=== PATIENT | female | born 1955 | race Caucasian/White ===

== ENCOUNTER → 2023-11-28 12:35 | Outpatient (REF) | payer OTHER, SELFPAY | LOC: HWRAD 12:35 | PROVIDERS: ATTENDING PHYSICIAN Internal Medicine | DX: Z12.31 Encounter for screening mammogram for malignant neoplasm of breast (principal); Z78.0 Asymptomatic menopausal state | CPT/HCPCS: 77063; 77067; 77080 ==

== ENCOUNTER → 2024-05-23 12:03 | Outpatient (REF) | payer MEDICARE, SELFPAY | LOC: MRI 3T 12:03 | PROVIDERS: ATTENDING PHYSICIAN Internal Medicine; FAMILY PHYSICIAN Internal Medicine | DX: K52.9 Noninfective gastroenteritis and colitis, unspecified (principal); R63.4 Abnormal weight loss | CPT/HCPCS: 72197; 74183; A9575 ==

== ENCOUNTER → 2024-08-10 12:36 | Outpatient (REF) | payer MEDICARE, SELFPAY | LOC: RAD 12:36 | PROVIDERS: ATTENDING PHYSICIAN Family Medicine; FAMILY PHYSICIAN Allergy & Immunology | DX: M54.9 Dorsalgia, unspecified (principal); R07.81 Pleurodynia | CPT/HCPCS: 71101 ==

== ENCOUNTER 2024-08-30 06:24 | Day surgery (SDC) | payer MEDICARE, SELFPAY | END 2024-08-30 15:21 | disposition home or self-care (01) | LOC: GI 06:24 | PROVIDERS: ATTENDING PHYSICIAN Internal Medicine; FAMILY PHYSICIAN Internal Medicine | DX: R19.7 Diarrhea, unspecified (principal); K44.9 Diaphragmatic hernia without obstruction or gangrene; R15.9 Full incontinence of feces; K63.89 Other specified diseases of intestine; D12.8 Benign neoplasm of rectum | CPT/HCPCS: 45338; 43239; 45331; 88305; 88342 ==

== ENCOUNTER → 2024-09-27 09:20 | Outpatient (REF) | payer MEDICARE, SELFPAY | LOC: RAD 09:20 | PROVIDERS: ATTENDING PHYSICIAN Internal Medicine; FAMILY PHYSICIAN Internal Medicine | DX: R15.9 Full incontinence of feces (principal) | CPT/HCPCS: 74270 ==

== ENCOUNTER 2024-10-09 15:56 | Outpatient (RCR) | payer MEDICARE, SELFPAY | END 2024-10-09 23:59 | disposition home or self-care (01) | LOC: RPT 15:56 | PROVIDERS: ATTENDING PHYSICIAN Internal Medicine; FAMILY PHYSICIAN Internal Medicine | DX: K52.9 Noninfective gastroenteritis and colitis, unspecified (principal); Z73.6 Limitation of activities due to disability; R19.7 Diarrhea, unspecified | CPT/HCPCS: 97110; 97112; 97161; 97530 ==

== ENCOUNTER → 2024-10-11 06:35 | Day surgery (SDC) | payer MEDICARE, SELFPAY | LOC: GI 06:35 | PROVIDERS: ATTENDING PHYSICIAN Internal Medicine | DX: Z12.11 Encounter for screening for malignant neoplasm of colon (principal); D12.5 Benign neoplasm of sigmoid colon; K57.30 Diverticulosis of large intestine without perforation or abscess without bleeding; K62.89 Other specified diseases of anus and rectum; Z86.0101 Personal history of adenomatous and serrated colon polyps | CPT/HCPCS: 45385; 45380; 88305 ==

== ENCOUNTER 2024-10-31 15:49 | Inpatient (IN) | payer MEDICARE, SELFPAY ==
[2024-10-31] VITALS (11 sets, daily range): BP systolic 129–229; BP diastolic 79–126; BMI 16.0; BMI 19.4
[2024-10-31 13:19] LABS: Glucose - Point of Care 108 mg/dl (70-99)
--- NOTE | 2024-10-31 13:33 | ED.CVA ---
History of Present Illness
General
Chief Complaint: CVA/TIA Symptoms
Source: patient and spouse
Exam Limitations: none
Time Seen by Provider: 10/31/24 13:18
Onset of Stroke Symptoms
Onset of symptoms known: Yes
Date of onset of symptoms: 10/31/24
Time of onset of symptoms: 12:00
History of Present Illness
History of Present Illness:
68yoF with a history of an enterocele/rectocele with upcoming hysterectomy and remote history of migraines presenting with her for evaluation of a speech disturbance. Patient was at a meeting this morning around 11:30 AM. She developed a
mild posterior headache during the meeting. She also had a transient episode of visual disturbance of the right eye. She states that looked like an impressionist painting in her peripheral vision. She returned home and was speaking to her
around noon today. He was speaking about friends of theirs and she could not figure out who he was talking about. Shortly afterwards, she states she could not get out her words and was having trouble speaking. Symptoms lasted about 25 minutes
before resolving. She currently reports a 3/10 posterior headache but is otherwise asymptomatic. She denies any dizziness, paresthesias, weakness, balance issues.
Phy Exam
General Physical Exam
General Presentation: well appearing and no apparent distress
General age: appears stated age
General Skin: warm and dry
General Habitus: normal
General Mental: alert
ENT Exam
ENT Exam: normocephalic
Eye Exam
Eye Exam: PERRL, EOMI, conjunctiva normal and visual costello normal
Cardiovascular Exam
Cardiovascular Exam: regular rate/rhythm and no murmur
Pulmonary Exam
Pulmonary Exam: lungs clear, no respiratory distress, no rales, no crackles and no rhonchi
Neurological Exam
Neurological Exam: alert, CN II-XII intact, no motor deficits, no sensory deficits, speech normal and other (CN 2-12 grossly intact with fluent speech. PERRL. EOMs intact. Visual costello normal. 5/5 strength and gross sensation intact in all
extremities. Negative drift x4. Normal finger to nose and heel to alfred bilaterally. )
Helio Coma Scale
Eye Opening: Spontaneous
Verbal Response: Oriented
Motor Response: Obeys Commands
GCS Total Score: 15
Skin Exam
Skin Exam: normal color and warm/dry
Psychiatric Exam
Psychiatric Exam: normal mood/affect
Scores
NIH Stroke Score
Level of Consciousness: 0 - Alert
LOC Questions: 0-Answers both correctly
LOC Commands: 0-Performs both correctly
Best Horizontal Gaze: 0-Normal
Visual Costello: 0=Normal, no visual loss
Facial Palsy: 0=Normal, symmetrical
Motor - Right Arm: 0=No drift 10 seconds
Motor - Left Arm: 0=No drift 10 seconds
Motor - Right Le-No drift 5 seconds
Motor - Left Le-No drift 5 seconds
Limb Ataxia: 0-Absent
Sensation: 0-Normal
Best Language: 0-No aphasia
Dysarthria: 0-Normal
Extinction and Inattention: 0-No abnormality
Total Score:: 0
Course
Orders/Labs/Results
Orders:
Orders
10/31/24 13:31
Electrocardiogram (*1) Urgent
Reason for Study: TIA/Stroke
EKG- Treatment ONCE
10/31/24 13:32
CT Head W/o Iv Contrast Urgent
Comment:
Reason For Exam: transient speech disturbance
Cardiac Monitoring- Treatment ONCE
10/31/24 13:34
Complete Blood Count/With Diff Urgent
Comprehensive Metabolic Panel Urgent
Troponin I Urgent
10/31/24 14:53
Acetaminophen [Tylenol] 1,000 mg PO NOW STA
10/31/24 15:08
HydrALAZINE [Apresoline] 10 mg IV NOW STA
10/31/24 15:17
Admit/Transfer Patient As Directed
Co-Sign Provider:
Level of Care: Inpatient admission
Assign to:: Telemetry
Physician / Group: Hospitalist
Diagnosis: Speech problems
Reason for Telemetry: CVA/TIA
Date to Stop Telemetry: 11/03/24
Time to Stop Telemetry: 11:00
Reason for Hospitalization: .
Expected length of stay greater than two midnights?: Yes
ELOS- Estimated Length of Stay in days: 3
I certify the patient meets the requirements for IP care: Yes
PRN Pain Medication Management As Directed
May give lesser potent ordered pain med per pt: Yes
preference::
Protocol:: Medication orders for pain may be administered in a
manner that supports deferring to patient preference
when the pt is:
- Requesting an ordered lesser potent pain medication.
Least to most potent pain medications are defined
as: acetaminophen < NSAID < tramadol < opioids
(morphine, oxycodone, hydromorphone).
- Requesting a lesser dose of the same medication IF
ORDERED.
- Requesting a less intrusive route of administration
if both routes are prescribed by the provider (PO <
IV).
10/31/24 15:18
Code Status As Directed
Resuscitation Status: Full Code
10/31/24 15:21
EKG [Electrocardiogram (*1)] Stat
Reason for Study: TIA/Stroke
CR Chest - 2 Views Stat
Comment:
Reason For Exam: Stroke
11/03/24 11:00
DC Protocol for Telemetry ONCE
Abnormal Lab Results
10/31/24 10/31/24
13:18 13:34
MCH 31.2 H pg
(27.0-31.0)
MCHC 32.8 L g/dL
(33.0-37.0)
MPV 11.2 H fL
(7.4-10.4)
Absolute Lymphs (auto) 1.1 L 10^3/uL
(1.2-3.4)
Lymphocytes % 19.2 L %
(20.5-51.1)
Carbon Dioxide 32 H mmol/L
(22-30)
Glucose 137 H mg/dl
(70-99)
POC Glucose 108 H mg/dl
(70-99)
10/31/24 13:34
10/31/24 13:34
Vital Signs
Initial and Last Documented VS:
Initial Vital Signs
Pulse Resp BP Pulse Ox
80 18 206/110 100
10/31/24 13:11 10/31/24 13:11 10/31/24 13:11 10/31/24 13:11
Last Documented Vital Signs
Pulse Resp BP Pulse Ox
77 13 191/96 99
10/31/24 14:05 10/31/24 13:25 10/31/24 14:05 10/31/24 14:05
MDM/Problems Addressed
Differential Diagnosis Includes:
68yoF presenting after an episode of speech disturbance. Could not understand what was saying and also could not get out her words. Lasted about 25 minutes before resolving. BP 206/110 on arrival. No prior history of hypertension. Neuro exam
is non-focal and NIHSS is 0. Differential diagnosis includes but is not limited to: TIA, intracranial hemorrhage, complex migraine, hypertensive urgency
Initial ED plan: Check cardiac labs, EKG, and CT head.
*EKG
Interpreted by ED Provider?: Yes
EKG Intrepretation Date: 10/31/24
Heart Rate: 74
Rate: normal
Rhythm: sinus
[place]: normal axis
Interval: normal interval
QRS Pattern: normal QRS
Ischemia: no ischemia
*Critical Care Note
Total Time (30-74mins, 75-104mins- exclusive of procedures): Not Applicable
Update Note
Update Note:
CT head is negative for acute findings. Labs overall unremarkable. Patient complaining of worsening headache on reassessment. She is persistently hypertensive with systolic blood pressures in the 190-200 range. She had an elevated blood pressure
at a PCP visit recently but has no prior diagnosis of hypertension. Case discussed with neurology who recommends admission. IV hydralazine ordered and patient admitted for further evaluation and management.
ED Attending Note
-
Portions of this chart may have been created with voice recognition software.� Occasional wrong word or��sound alike� substitutions may have occurred due to the inherent limitations of voice recognition software.
Discharge Plan
Departure
Patient Disposition: Admit
Date of Disposition: 10/31/24
Time of Disposition: 15:09
Presentation/result/management discussed w/ accepting MD/DO: Hospitalist
Discharge Problem:
Transient speech disturbance, Hypertensive urgency
Prescriptions:
No Action
loperamide [Imodium] 2 mg Capsule
2 mg PO DAILYPRN PRN (Reason: DIARRHEA)
acetaminophen 500 mg Tablet
1,000 mg PO Q6HPRN PRN (Reason: MILD PAIN)
cyanocobalamin (vitamin B-12) 1,000 mcg/mL Solution
1,000 mcg IM QMONTH
folic acid 1 mg Tablet
1 mg PO DAILY
cholecalciferol (vitamin D3) [Vitamin D3] 25 mcg (1,000 unit) Tablet
25 mcg PO DAILY
Ostinol
150 mg PO DAILY
Referrals:
Kelley Conte NP [Family Provider] -
Interventions
Interventions:
*Risk Screen - Suicide Last Done: 10/31/24 13:11
*General Assessment Last Done: 10/31/24 13:31
ED- Fall Risk Assessment Last Done: 10/31/24 13:38
ED- Pulmonary Assessment Last Done: 10/31/24 13:38
ED- Neurological Assessment Last Done: 10/31/24 13:38
ED- Cardiac Assessment Last Done: 10/31/24 13:38
Discharge Date and Time
Print Language: BELARUSIAN
[2024-10-31 13:57] LABS: % Basophils 0.5 % (0-2); % Immature Granulocytes 0.2 % (0-0.5); % Lymphocytes 19.2 % (20.5-51.1); % Monocytes 7.9 % (1.7-9.3); % Neutrophils 71.2 % (42.2-75.2); Absolute Eosinophils 0.1 10^3/uL (0-0.7); Absolute Lymphocytes 1.1 10^3/uL (1.2-3.4); Absolute Monocytes 0.5 10^3/uL (0.1-0.6); Absolute Neutrophils 4.2 10^3/uL (1.4-6.5); Hematocrit 43.9 % (37.0-47.0); Hemoglobin 14.4 g/dL (12.0-16.0); Mean Corp Hgb Conc. 32.8 g/dL (33.0-37.0); Mean Corpuscular Hgb 31.2 pg (27.0-31.0); Mean Platelet Volume 11.2 fL (7.4-10.4); Nucleated Red Blood Cells % 0 %; Platelet Count 228 10^3/uL (130-400); Red Blood Cell Count 4.62 10^6/uL (4.20-5.40); White Blood Cell Count 5.9 10^3/uL (4.8-10.8)
[2024-10-31 14:09] LABS: ALT (SGPT) 21 U/L (0-35); AST (SGOT) 30 U/L (14-36); Albumin 4.3 g/dl (3.5-5.0); Alkaline Phosphatase 97 U/L (38-126); Blood Urea Nitrogen 16 mg/dl (7-17); Calcium 9.2 mg/dl (8.4-10.2); Carbon Dioxide 32 mmol/L (22-30); Chloride 99 mmol/L (98-107); Estimated Creatinine Clearance 45 ml/min; Glucose 137 mg/dl (70-99); Potassium 4.2 mmol/L (3.5-5.1); Sodium 136 mmol/L (135-145); Total Bilirubin 0.5 mg/dl (0.2-1.3); Total Protein 6.7 g/dl (6.3-8.2); eGFR > 60.00
[2024-10-31 14:19] LABS: Troponin I < 0.012 ng/ml
--- NOTE | 2024-10-31 15:17 | HPS.HSE ---
Family Physician
-
Family Physician: Kelley Conte
Chief Complaint
-
Speech problem
History of Present Illness
68 years old female who was at normal state today when she started to have headache during virtual meeting with family financial management consultant today. She did have vision of problems. She has history of migraine but has not had severe migraine. She
takes Tylenol only for headaches. Later on she felt that she knew what she wanted to say but could not expressive and her family felt she was having speech problems that lasted 25 minutes and resolved. She is at her baseline now. In the ER, she
was noted to have elevated blood pressure. She has no history of hypertension but recently was told her blood pressure was on the high side. She does not take specific medications other than supplements
Medical History
Past Medical History
Past Medical History: Reports Other (History of chronic diarrhea/IBS)
Past Surgical History: Reports Other (No recent major surgery)
Social History
Tobacco: Non-smoker
Alcohol: Occasional
Drug: None
Personal:
Living: With Family
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
Family History
Family History: Other (Her father had Parkinson. Her mother had hypertension)
Allergies / Home Medications
Allergies reflects when Allergies were last updated in [facility].
Home Medications with original date entered in [facility]
Allergy/Medication List:
Allergies
Allergy/AdvReac Type Severity Reaction Status Date / Time
metronidazole [From Flagyl] Allergy facial/neck Verified 10/31/24 13:32
numbness
Home Medications
Ostinol 150 mg PO DAILY 10/31/24
acetaminophen 500 mg tablet 1,000 mg PO Q6HPRN PRN MILD PAIN 10/31/24
cholecalciferol (vitamin D3) 25 mcg (1,000 unit) tablet (Vitamin D3) 25 mcg PO DAILY 10/31/24
cyanocobalamin (vitamin B-12) 1,000 mcg/mL injection solution 1,000 mcg IM QMONTH 10/31/24
folic acid 1 mg tablet 1 mg PO DAILY 10/31/24
loperamide 2 mg capsule 2 mg PO DAILYPRN PRN DIARRHEA 10/31/24
Review of Systems
-
History Source: Patient
A 12 point ROS was completed and negative except as noted: Yes
Constitutional: Denies Fever, Fatigue, Sleep Disturbance or Chills
EENT: Denies Sore Throat
Respiratory: Denies Cough
Cardiac: Denies Chest Pain
Abdomen/GI: Reports Diarrhea (Chronic mostly morning time); Denies Abdominal Pain
: Denies Dysuria or Frequency
Musculoskeletal: Denies Joint Swelling or Muscle Stiffness
Neurological: Reports Headache; Denies Numbness
Endocrine: Denies Temp Intolerance
Hematologic/Lymphatic: Denies Bruising
Psych: Denies Panic Disorder
Physical Exam
Vital Signs
Vital Signs
Pulse Resp BP Pulse Ox
77 13 191/96 99
10/31/24 14:05 10/31/24 13:25 10/31/24 14:05 10/31/24 14:05
Physical Exam
General: Well Nourished, No Apparent Distress, Comfortable and Conversant
HEENT: Anicteric, Moist mucous membranes, Atraumatic and No Ptosis
Respiratory: Clear
Cardiac: S1/S2 and Regular Rhythm; No Murmur
GI: Soft and Non Tender
Rectal: No Maroon Stools
Genito-urinary: No Cheung
Musculoskeletal: No Clubbing, No Cyanosis and No Edema
Skin: Warm and Dry
Neuro: AO x 3, Nonfocal/grossly intact and Cranial Nerves Intact; No Slurred Speech, Facial Droop or Tremors
Psych: Calm and Intact Judgment/Insight
Laboratory Results
-
10/31/24 13:34
10/31/24 13:34
Laboratory Results
Total Bilirubin 0.5 mg/dl (0.2-1.3) 10/31/24 13:34
AST 30 U/L (14-36) 10/31/24 13:34
ALT 21 U/L (0-35) 10/31/24 13:34
Alkaline Phosphatase 97 U/L (38-126) 10/31/24 13:34
Troponin I < 0.012 ng/ml 10/31/24 13:34
Impression/Plan
-
68 years old female presented with transient visual and speech problems that resolved. She was noted to have elevated blood pressure in the ER.
#Transient expressive aphasia accompanied by headache and visual disturbance.
History of migraine
Differential diagnosis include hypertensive encephalopathy, stroke/ TIA, complex migraine
Currently patient has normal neurologic exam
Mild headache
Admit the patient to telemetry
Stroke protocol with neurochecks
Permissive hypertension
CAT scan of the head no acute finding
Will order CTA of head and neck and MRI of the brain
Echocardiogram
Lipid panel and hemoglobin A1c, TSH
Negative troponin.
Appreciate neurology input
# History of migraine
Will use Tylenol as needed
#Hypertensive urgency
No personal history of hypertension
Her mother had hypertension
Possible untreated primary hypertension. Normal renal function. No heart murmur or carotid bruit
Will check EKG
Order chest x-ray
Negative troponin
Order echocardiogram
Permissive hypertension for 24 hours because possibility of TIA/stroke
As needed IV hydralazine with holding parameters strict to keep systolic blood pressure more than 165 if possible
Subsequent monitoring and adjustment of blood pressure medication
# History of digestive problems, chronic diarrhea mostly morning time need to use Imodium.
Patient is following with GI and recent colonoscopy ruled out microscopic colitis
# History of rectal prolapse, plan for surgical repair in near future
# DVT prophylaxis
Total time spent to see the patient on the floor, examine the patient, review data and lab results, discuss treatment plan with patient, ER doctor and nursing staff around 75 minutes
[2024-10-31] MEDS: APRESOLINE 10 MG IV (15:52)
[2024-10-31] MEDS: TYLENOL 1000 MG PO ×2 (15:52→21:32)
--- NOTE | 2024-10-31 16:24 | CON.NEURO ---
Consultation
Order
Date of Consultation: 10/31/24
Requesting Provider: Kameron Pike MD
Reason for Consult: Speech changes
Neurology Consultation Note.
HPI: This is a 68-year-old left-handed woman who presented to [facility] on 10/31/2024 with change in speech, headache and elevated blood pressure. The patient endorses gradual in onset left occipital nonpositional headache that
developed this morning following a meeting around 11:30 AM. Prior to the headache onset, she experienced difficulty putting sentences together. Associated symptoms include photophobia and mild nausea. The patient denies visual, motor or sensory
symptoms, vertigo or neck pain. The episode of difficulty with word formation - words were 'jumbled' lasted approximately 20-30 minutes
Based on EMR the patient had a transient episode of visual disturbance of the right eye.
The patient has a history of elevated blood pressure, recently noted by her primary care physician during a check-up for dietary issues and weight loss.
ER VS: 206/102-229/125, 80, afebrile
EKG�Pending
Labs: Glucose�134, normal sodium, WBCs, creatinine, LFTs.
CT head wo contrast�no acute abnormality
PMH: Vitamin B12/D deficiency, tubular Adenoma, IBS, BMI 16, enterocele/rectocele, h/o left fifth metatarsal shaft fracture
PSH:
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
FH: Father had Parkinson disease, mother from stroke in her 80s
All: Flagyl
ROS: Positive for unintentional weight loss
HENT: Negative for ear pain, hearing loss, tinnitus and trouble swallowing.
Eyes: Negative. Negative for photophobia, pain and visual disturbance.
Respiratory: Negative for cough, choking and shortness of breath.
Cardiovascular: Negative for chest pain, palpitations and leg swelling.
Gastrointestinal: Positive for 'GI problems '
Endocrine: Negative. Negative for cold intolerance.
Genitourinary: Negative for dysuria, flank pain and urgency.
Musculoskeletal: Negative for back pain, gait problem, neck pain and neck stiffness.
Skin: Negative for rash.
Allergic/Immunologic: Negative. Negative for immunocompromised state.
Neurological: Positive for transient speech dysfunction, headache
Psychiatric/Behavioral: Negative for behavioral problems, confusion and hallucinations.
General: Well developed. In no acute distress.
Cardio: Regular rate and rhythm without murmur. Extremities are without cyanosis or edema.
Neuro:
Mental Status: Alert, oriented to person, place, and date. Normal attention and recall. Good fund of knowledge. Follows complex requests across the midline. Comprehension, naming, and repetition intact.
Cranial Nerves: Pupils are equally round and reactive to light. EOMs full. Visual costello full to confrontation. No ptosis. No nystagmus. V1-V3 intact to light touch and pinprick bilaterally, symmetric. Face symmetric. Normal hearing AU. The
palate elevated well. SCMs and traps 5/5. Tongue midline. No dysarthria.
Motor: Normal bulk and tone. No pronator or arm drift. Strength 5/5 throughout. No clonus.
Reflexes: 2+ throughout the upper extremities and knees. Plantar responses flexor bilaterally.
Sensory: Normal vibration at the toes
Coordination: No dysmetria or tremor.
Gait: deferred
Assessment and Plan:
I. Hypertensive emergency
II. New onset of headache �rule out PRESS
III. History of migraine headaches
-Continue Telemetry monitoring
-Aspiration precautions
-Cautious lowering of BP by approximately 15 % during the first 24 hours is SBP >220 mmHg or diastolic blood pressure >120 mmHg
-Restart antihypertensive medications during if BP>140/90 mmHg who are neurologically stable in 24 to 48 hours after stroke onset
-Start ASA 81 mg QD indefinitely
-CTA of the head and neck
-Brain MRI without radha
-DVT prophylaxis.
I personally reviewed all radiology and labs along with past medical records pertinent to current medical problems. Total time spent in patient care is 60 minutes.
Thank you for allowing us to participate in the care of this patient. We will continue to follow. Please do not hesitate to contact us with any questions or concerns.
Subjective/Objective
Subjective Data
Date of Service: October 31, 2024
Objective Data
Vital Signs
Pulse Resp BP Pulse Ox
75 18 203/108 98
10/31/24 16:00 10/31/24 16:00 10/31/24 16:00 10/31/24 15:57
Lab Results
10/31/24 13:34
10/31/24 13:34
Sodium 136 mmol/L (135-145) 10/31/24 13:34
Potassium 4.2 mmol/L (3.5-5.1) 10/31/24 13:34
BUN 16 mg/dl (7-17) 10/31/24 13:34
Glucose 137 mg/dl (70-99) H 10/31/24 13:34
Calcium 9.2 mg/dl (8.4-10.2) 10/31/24 13:34
Patient Allergies
metronidazole [From Flagyl] Allergy (Verified 10/31/24 13:32)
facial/neck numbness
Medications
-
Home Medications
�Medication �Instructions �Recorded
Ostinol 150 mg PO DAILY 10/31/24
acetaminophen 500 mg tablet 1,000 mg PO Q6HPRN PRN MILD PAIN 10/31/24
cholecalciferol (vitamin D3) 25 25 mcg PO DAILY 10/31/24
mcg (1,000 unit) tablet (Vitamin
D3)
cyanocobalamin (vitamin B-12) 1,000 mcg IM QMONTH 10/31/24
1,000 mcg/mL injection solution
folic acid 1 mg tablet 1 mg PO DAILY 10/31/24
loperamide 2 mg capsule 2 mg PO DAILYPRN PRN DIARRHEA 10/31/24
Vital Signs and Labs
-
Vital Signs and Labs:
Vital Signs
Pulse Resp BP Pulse Ox
75 18 203/108 98
10/31/24 16:00 10/31/24 16:00 10/31/24 16:00 10/31/24 15:57
Lab Results
10/31/24 13:34
10/31/24 13:34
Sodium 136 mmol/L (135-145) 10/31/24 13:34
Potassium 4.2 mmol/L (3.5-5.1) 10/31/24 13:34
BUN 16 mg/dl (7-17) 10/31/24 13:34
Glucose 137 mg/dl (70-99) H 10/31/24 13:34
Calcium 9.2 mg/dl (8.4-10.2) 10/31/24 13:34
Home Medications
-
Home Medications
Ostinol 150 mg PO DAILY 10/31/24
acetaminophen 500 mg tablet 1,000 mg PO Q6HPRN PRN MILD PAIN 10/31/24
cholecalciferol (vitamin D3) 25 mcg (1,000 unit) tablet (Vitamin D3) 25 mcg PO DAILY 10/31/24
cyanocobalamin (vitamin B-12) 1,000 mcg/mL injection solution 1,000 mcg IM QMONTH 10/31/24
folic acid 1 mg tablet 1 mg PO DAILY 10/31/24
loperamide 2 mg capsule 2 mg PO DAILYPRN PRN DIARRHEA 10/31/24
--- NOTE | 2024-10-31 18:05 | PTCARENOTE ---
Received patient from ED via stretcher. AAOx3, ambulated to bed. Assessed and oriented to room. at bedside. NIH-0. Call browne in close reach.
[2024-10-31 18:50] LABS: Magnesium 2.2 mg/dl (1.6-2.3)
[2024-10-31] MEDS: HEPARIN 5000 UNITS SC (19:31)
[2024-10-31] MEDS: ZOFRAN 4 MG IV (19:31)
[2024-11-01] VITALS (7 sets, daily range): BP systolic 139–172; BP diastolic 68–99; PULSE 75–78; O2SAT 97
[2024-11-01] MEDS: TYLENOL 1000 MG PO (05:18)
[2024-11-01 06:21] LABS: Hematocrit 40.1 % (37.0-47.0); Hemoglobin 13.6 g/dL (12.0-16.0); Mean Corp Hgb Conc. 33.9 g/dL (33.0-37.0); Mean Corpuscular Hgb 31.2 pg (27.0-31.0); Mean Platelet Volume 11.5 fL (7.4-10.4); Platelet Count 208 10^3/uL (130-400); Red Blood Cell Count 4.36 10^6/uL (4.20-5.40); Red Cell Dist. Width 14.1 % (11.5-14.5); White Blood Cell Count 5.9 10^3/uL (4.8-10.8)
[2024-11-01 06:42] LABS: Blood Urea Nitrogen 16 mg/dl (7-17); Calcium 9.2 mg/dl (8.4-10.2); Carbon Dioxide 28 mmol/L (22-30); Chloride 103 mmol/L (98-107); Estimated Creatinine Clearance 49 ml/min; Glucose 96 mg/dl (70-99); HDL Cholesterol 78 mg/dl; LDL Cholesterol, Calculated 81 mg/dl; Potassium 4.4 mmol/L (3.5-5.1); Sodium 136 mmol/L (135-145); Total Cholesterol 181 mg/dl (50-199); Triglyceride 114 mg/dl (10-149); Very Low Density Lipoprotein 22 mg/dl (0-30); eGFR > 60.00
[2024-11-01 07:13] LABS: TSH 1.06 uIU/ml (0.47-4.68)
[2024-11-01] MEDS: NORVASC 5 MG PO ×2 (08:22→15:23)
[2024-11-01] MEDS: FOLVITE 1 MG PO (08:22)
[2024-11-01] MEDS: HEPARIN SC (08:22)
--- NOTE | 2024-11-01 09:43 | PTOTSP ---
ST Consult
Chart reviewed. Pt admitted for speech disturbance, headache, transient episode of visual disturbance, confusion, and expressive language difficulties that lasted <30 minutes. Pt dx with transient expressive aphasia with headache and visual
disturbance 2/2 hypertensive encephalopathy vs TIA/CVA vs complex migraine along with hypertensive urgency. Pt had an MRI of the Brain which revealed no acute infarction. Pt passed swallow screening and per RN has been tolerating PO medications and
PO intake without difficulties. Pt also has not had any further communication issues. Given this information, skilled [employer] evaluation is not indicated at this time. [employer] to sign off. Please re-consult if needed. Thank you.
[2024-11-01 10:14] LABS: C-Reactive Protein < 5.00 mg/L (0.0-10.00)
--- NOTE | 2024-11-01 10:26 | W.PN.HOSP.TC ---
Today's Communication/Plan
-
dc
Assessment / Plan
Assessment / Plan
Physical Exam
General: Well Nourished, No Apparent Distress, Comfortable and Conversant
HEENT: Anicteric, Moist mucous membranes, Atraumatic and No Ptosis
Respiratory: Clear
Cardiac: S1/S2 and Regular Rhythm; No Murmur
GI: Soft and Non Tender
Rectal: No Maroon Stools
Genito-urinary: No Cheung
Musculoskeletal: No Clubbing, No Cyanosis and No Edema
Skin: Warm and Dry
Neuro: AO x 3, Nonfocal/grossly intact and Cranial Nerves Intact; No Slurred Speech, Facial Droop or Tremors
Psych: Calm and Intact Judgment/Insight
68 years old female presented with transient visual and speech problems that resolved. She was noted to have elevated blood pressure in the ER.
#Transient expressive aphasia accompanied by headache and visual disturbance.
History of migraine
Differential diagnosis include hypertensive encephalopathy, stroke/ TIA, complex migraine
No recurrent speech problem, speech is fluent
Normal neurologic exam
Stroke protocol with neurochecks
s/p Permissive hypertension
CAT scan of the head no acute finding
CTA of head and neck no acute stenosis or obstruction
MRI of the brain and MRI with contrast, no acute findings.
Echocardiogram normal LVEF
Normal ESR, CRP and TSH
Negative troponin.
Discussed with neurology, all test are normal, unlikely stroke, prophylactically as could not rule out TIA, recommended to continue dual antiplatelet therapy for 3 weeks then to continue with aspirin., Neurology okay to discharge home.
# History of migraine
No more headache, no visual disturbances
Tylenol as needed
#Hypertensive urgency, result
No personal history of hypertension
Her mother had hypertension
Possible untreated primary hypertension. Normal renal function. No heart murmur or carotid bruit
EKG showed normal sinus rhythm
Checks x-ray no acute cardiopulmonary disease
Negative troponin
Echocardiogram showed normal LVEF 55 to 60%, mild mitral regurgitation, trace aortic regurgitation.
Discussed with the patient, started on amlodipine. She was advised to record her blood pressure twice a day. Patient has appointment with her PCP in 3 days.
# History of digestive problems, chronic diarrhea mostly morning time need to use Imodium.
Patient is following with GI and recent colonoscopy ruled out microscopic colitis
# History of rectal prolapse, plan for surgical repair in near future
I updated her surgeon Dr. German Dixon .
# DVT prophylaxis
Total discharge time spent to see the patient on the floor, examine the patient, review data and lab results, discuss discharge plan with patient, neurologist r and nursing staff around 65 minutes
Anticipated Discharge: Today
Subjective/Interval History
-
Date of Service: November 01, 2024
No sob
No chest pain
No speech problems
Wants to go home
Objective Data
-
Labs:
Laboratory Results
11/01/24
05:35
WBC 5.9
Hgb 13.6
Hct 40.1
Plt Count 208
Sodium 136
Potassium 4.4
Chloride 103
Carbon Dioxide 28
BUN 16
Creatinine 0.8
Glucose 96
Calcium 9.2
Vital Signs:
Vital Signs
Temp Pulse Resp BP Pulse Ox
98.5 F 74 20 154/93 97
11/01/24 07:37 11/01/24 07:37 11/01/24 07:37 11/01/24 07:37 11/01/24 07:37
I&O
10/31/24 11/01/24 11/02/24
06:59 06:59 06:59
Intake Total 480 / 480
Balance 480 / 480
[2024-11-01 12:00] LABS: Erythrocyte Sed Rate 1 mm/hour (0-20)
--- NOTE | 2024-11-01 13:18 | W.PN.NEURO.1 ---
Today's Communication / Plan
-
.
Subjective/Objective
Subjective Data
Date of Service: November 01, 2024
Neurology follow-up note
Ms. Tyson reports no complaint. She is eager to go home. Blood pressure has improved however continues to be elevated no reports of recurrent speech deficits.
The patient denies having headache, visual, motor or sensory changes.
MRI brain w/wo radha(11/01/2024) moderate T2/FLAIR hyperintense foci within the periventricular and deep subcortical white matter, greater than expected for age. Differential includes advanced chronic small vessel changes, demyelinating lesions, Lyme
disease, chronic migraines or vasculitis.
LDL�81, normal ESR, CRP, TSH
CTA head/neck-no hemodynamically significant stenosis.
TTE-Interatrial septum is intact with no evidence of shunting by color flow Doppler. No intracardiac mass or thrombus formation seen.
PMH: Vitamin B12/D deficiency, tubular Adenoma, IBS, BMI 16, enterocele/rectocele, h/o left fifth metatarsal shaft fracture
PSH:
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
FH: Father had Parkinson disease, mother from stroke in her 80s
All: Flagyl
ROS: Positive for unintentional weight loss
HENT: Negative for ear pain, hearing loss, tinnitus and trouble swallowing.
Eyes: Negative. Negative for photophobia, pain and visual disturbance.
Respiratory: Negative for cough, choking and shortness of breath.
Cardiovascular: Negative for chest pain, palpitations and leg swelling.
Gastrointestinal: Positive for 'GI problems '
Endocrine: Negative. Negative for cold intolerance.
Genitourinary: Negative for dysuria, flank pain and urgency.
Musculoskeletal: Negative for back pain, gait problem, neck pain and neck stiffness.
Skin: Negative for rash.
Allergic/Immunologic: Negative. Negative for immunocompromised state.
Neurological: Positive for transient speech dysfunction, headache
Psychiatric/Behavioral: Negative for behavioral problems, confusion and hallucinations.
General: Well developed. In no acute distress.
Cardio: Regular rate and rhythm without murmur. Extremities are without cyanosis or edema.
Neuro:
Mental Status: Alert, oriented to person, place, and date. Normal attention and recall. Good fund of knowledge. Follows complex requests across the midline. Comprehension, naming, and repetition intact.
Cranial Nerves: Pupils are equally round and reactive to light. EOMs full. Visual costello full to confrontation. No ptosis. No nystagmus. V1-V3 intact to light touch and pinprick bilaterally, symmetric. Face symmetric. Normal hearing AU. The
palate elevated well. SCMs and traps 5/5. Tongue midline. No dysarthria.
Motor: Normal bulk and tone. No pronator or arm drift. Strength 5/5 throughout. No clonus.
Reflexes: 2+ throughout the upper extremities and knees. Plantar responses flexor bilaterally.
Sensory: Normal vibration at the toes
Coordination: No dysmetria or tremor.
Gait: deferred
Assessment and Plan:
I. TIA.
II. Subcortical white matter disease. Differential diagnosis includes vascular versus inflammatory less likely infectious or demyelinating.
III. History of migraine headaches
-Blood pressure goal�normotension
-DAPT for 3 weeks
-Brain MRI with gadolinium
-Follow-up MS mimickers
-Holter monitor
-Outpatient neurology follow-up
-DVT prophylaxis.
I personally reviewed all radiology and labs along with past medical records pertinent to current medical problems. Total time spent in patient care is 35 minutes.
Thank you for allowing us to participate in the care of this patient. We will continue to follow. Please do not hesitate to contact us with any questions or concerns.
Objective Data
Vital Signs
Temp Pulse Resp BP Pulse Ox
36.9 C 75 20 170/94 97
11/01/24 11:50 11/01/24 11:50 11/01/24 11:50 11/01/24 11:50 11/01/24 11:50
Lab Results
11/01/24 05:35
11/01/24 05:35
Sodium 136 mmol/L (135-145) 11/01/24 05:35
Potassium 4.4 mmol/L (3.5-5.1) 11/01/24 05:35
BUN 16 mg/dl (7-17) 11/01/24 05:35
Glucose 96 mg/dl (70-99) 11/01/24 05:35
Calcium 9.2 mg/dl (8.4-10.2) 11/01/24 05:35
LDL Cholesterol, Calc 81 mg/dl 11/01/24 05:35
Patient Allergies
metronidazole [From Flagyl] Allergy (Verified 10/31/24 13:32)
facial/neck numbness
Vital Signs and Labs
-
Vital Signs and Labs:
Vital Signs
Temp Pulse Resp BP Pulse Ox
36.9 C 75 20 170/94 97
11/01/24 11:50 11/01/24 11:50 11/01/24 11:50 11/01/24 11:50 11/01/24 11:50
Lab Results
11/01/24 05:35
11/01/24 05:35
Sodium 136 mmol/L (135-145) 11/01/24 05:35
Potassium 4.4 mmol/L (3.5-5.1) 11/01/24 05:35
BUN 16 mg/dl (7-17) 11/01/24 05:35
Glucose 96 mg/dl (70-99) 11/01/24 05:35
Calcium 9.2 mg/dl (8.4-10.2) 11/01/24 05:35
LDL Cholesterol, Calc 81 mg/dl 11/01/24 05:35
Medications
-
Medications:
Generic Name Dose Route Start Last Admin
Trade Name Freq PRN Reason Stop Dose Admin
Acetaminophen 1,000 mg 10/31/24 22:00 11/01/24 05:18
Acetaminophen 500 Mg Tablet PO 11/28/24 21:59 1,000 mg
Q6HPRN PRN Administration
MILD PAIN
Amlodipine Besylate 5 mg 11/01/24 08:00 11/01/24 08:22
Amlodipine 5 Mg Tablet PO 11/29/24 07:59 5 mg
DAILY JENNIFER Administration
Enalaprilat 1.25 mg 10/31/24 17:38
Enalaprilat 1.25 Mg/Ml Vial IV 11/28/24 17:37
Q6HPRN PRN
SBP more than 200
Folic Acid 1 mg 11/01/24 08:00 11/01/24 08:22
Folic Acid 1 Mg Tablet PO 11/29/24 07:59 1 mg
DAILY JENNIFER Administration
Heparin Sodium 5,000 units 10/31/24 20:00 11/01/24 08:22
Heparin 5,000 Units/Ml 1 Ml Vial SC 11/28/24 19:59 Not Given
Q12 JENNIFER
Hydralazine HCl 5 mg 10/31/24 17:38
Hydralazine 20 Mg/Ml Vial IV 11/28/24 17:37
Q4HPRN PRN
sbp more than 180
Loperamide HCl 2 mg 10/31/24 17:38
Loperamide 2 Mg Capsule PO 11/28/24 17:37
Q4HPRN PRN
DIARRHEA
Lorazepam 0.5 mg 10/31/24 18:01
Lorazepam 0.5 Mg Tablet PO 11/28/24 18:00
Q8HPRN PRN
Anxiety/insomnia
Ondansetron HCl 4 mg 11/01/24 06:34
Ondansetron 4 Mg/2 Ml Vial IV 11/29/24 06:33
Q6HPRN PRN
NAUSEA/VOMITING
Sodium Chloride 0 flush 10/31/24 18:00
Sodium Chloride 0.9% (Flush) Syringe IV 11/28/24 17:59
PER PROTOCOL JENNIFER
Home Medications
-
Home Medications
Ostinol 150 mg PO DAILY 10/31/24
acetaminophen 500 mg tablet 1,000 mg PO Q6HPRN PRN MILD PAIN 10/31/24
cholecalciferol (vitamin D3) 25 mcg (1,000 unit) tablet (Vitamin D3) 25 mcg PO DAILY Supplement 10/31/24
cyanocobalamin (vitamin B-12) 1,000 mcg/mL injection solution 1,000 mcg IM QMONTH Supplement 10/31/24
folic acid 1 mg tablet 1 mg PO DAILY Supplement 10/31/24
loperamide 2 mg capsule 2 mg PO DAILYPRN PRN DIARRHEA 10/31/24
--- NOTE | 2024-11-01 14:51 | CM ---
Alert awake oriented patient who lives with her Dean who lives in a 2 story home with 5 steps to enter and 13 to bed bathroom. She is independent in driving and in all activities of daily living.Offered VN she declined.
No adaptive devices
Never had VN/SNF
Pharmacy [facility]
PCP Dr Conte
PLAN Home no needs
[2024-11-01] MEDS: PLAVIX 75 MG PO (15:23)
[2024-11-01 16:26] LABS: Lyme Antibody Screen, EIA Negative (Negative)
--- NOTE | 2024-11-02 13:12 | W.DCSUMMARY ---
Discharge Summary
Discharge Data
Date of Admission: 10/31/24
Date of Discharge: 11/01/24
-
Pending Results: No
Hospital Course
68 years old female presented from home. Patient reported history of headache followed by some visual problem. Later on she was noticed to have a problem finding words. Patient had history of migraine. Upon arrival to the hospital, symptoms had
resolved already. She did not have focal neurological deficits on exam. Scan of the head did not show acute finding. She was admitted on telemetry monitoring for neurochecks and neurology evaluation. Patient did not have recurrent speech or
visual problems. MRI of she did not have the head done twice with IV contrast did not show acute finding. Scan of the head and neck with contrast showed no acute intracranial hemorrhage, no evidence of significant plaque, stenosis, occlusion or
dissection. Leukocytosis. Normal ESR and C-reactive protein. Normal TSH. She was noted to have elevated blood pressure. Patient denied previous diagnosis of high blood pressure. Her blood pressure was treated with IV hydralazine in the ER.
Later on she was started on oral amlodipine with good response. She had normal renal function. EKG showed normal sinus rhythm. Echocardiogram showed normal left ventricular function with ejection fraction of 55 to 60%, normal right ventricular,
mild mitral regurgitation, trace aortic regurgitation. She did not have palpitation, shortness of breath or chest pain. Patient was advised to monitor her blood pressure and follow-up with her primary care doctor. She was advised to write down
blood pressure readings. Neurologist recommended dual antiplatelet therapy with aspirin and Plavix for 3 weeks then to continue with aspirin only for possibility of transient ischemic attack. Patient remained hemodynamically stable and was
discharged home in a stable condition. Patient was advised to follow-up with neurology in 1 month.
Discharge Plan
-
Patient Disposition: Home (Routine Discharge)
Discharge Diagnosis/Procedures: Speech problem, possible TIA
You were seen by neurology, we recommend aspirin and Plavix for 3 weeks then continue with aspirin only, follow with neurology as OP.
You had echocardiogram that showed normal left ventricular size and function with ejection fraction 55 to 60%, normal diastolic function. Mild mitral regurgitation, trace aortic regurgitation.
-Your thyroid hormone level is normal
-Inflammation markers are negative
-Lipid panel showed LDL 81, triglyceride 114, total cholesterol 181.
You were found to have high blood pressure, you were started on new medicine called Amlodipine (calcium channel daphne), please monitor your blood pressure twice at home and follow with your PCP.
Diet: As tolerated
Referrals:
Javan Romano MD [Active] - in one month
Kelley Conte NP [Family Provider] - 11/05/24
Prescriptions:
New
clopidogrel 75 mg Tablet
75 mg PO DAILY Qty: 20 0RF
amlodipine 10 mg Tablet
10 mg PO DAILY Qty: 30 0RF
aspirin 81 mg tablet,chewable
81 mg PO DAILY Qty: 30 0RF
Continued
loperamide 2 mg Capsule
2 mg PO DAILYPRN PRN (Reason: DIARRHEA)
acetaminophen 500 mg Tablet
1,000 mg PO Q6HPRN PRN (Reason: MILD PAIN)
cyanocobalamin (vitamin B-12) 1,000 mcg/mL Solution
1,000 mcg IM QMONTH
folic acid 1 mg Tablet
1 mg PO DAILY
cholecalciferol (vitamin D3) [Vitamin D3] 25 mcg (1,000 unit) Tablet
25 mcg PO DAILY
Ostinol
150 mg PO DAILY
Discharge Orders:
Discharge Patient (As Directed); Ordered 11/01/24
Ordered By: Kameron Pike
Discharge Date and Time
Discharge Date/Time: 11/01/24 16:39
Print Language: MALAGASY
[2024-11-02 13:36] LABS: Angiotensin-1-converting Enzym 35 U/L (16-85)
== END 2024-11-01 16:39 | disposition home or self-care (01) | DRG 69 ==
LOC: 4 EAST ACU 15:49
PROVIDERS: Physician Assistant; ADMITTING PHYSICIAN Internal Medicine; CONSULT PHYSICIAN Psychiatry & Neurology Neurology; EMERGENCY PHYSICIAN Emergency Medicine; FAMILY PHYSICIAN Internal Medicine
DX: G45.9 Transient cerebral ischemic attack, unspecified (principal); R47.01 Aphasia; I16.1 Hypertensive emergency; G43.909 Migraine, unspecified, not intractable, without status migrainosus; K58.0 Irritable bowel syndrome with diarrhea; Z82.49 Family history of ischemic heart disease and other diseases of the circulatory system; H53.9 Unspecified visual disturbance; Z82.3 Family history of stroke; Z82.0 Family history of epilepsy and other diseases of the nervous system; Z87.891 Personal history of nicotine dependence; I10 Essential (primary) hypertension
CPT/HCPCS: 70450; 70496; 70498; 70551; 70553; 71046; 80048; 80053; 80061; 82164; 82962; 83516; 83735; 84443; 84484; 85025; 85027; 85652; 86140; 86618; 93005; 93306; 97161; 97165; 99285; A9575; Q9967

== ENCOUNTER 2024-11-06 13:15 | Outpatient (RCR) | payer MEDICARE, SELFPAY | END 2024-11-06 23:59 | disposition home or self-care (01) | LOC: RPT 13:15 | PROVIDERS: ATTENDING PHYSICIAN Internal Medicine; FAMILY PHYSICIAN Internal Medicine | DX: K52.9 Noninfective gastroenteritis and colitis, unspecified (principal); R19.7 Diarrhea, unspecified; Z73.6 Limitation of activities due to disability | CPT/HCPCS: 97110; 97112; 97530 ==

== ENCOUNTER 2024-12-04 13:05 | Outpatient (RCR) | payer MEDICARE, SELFPAY | END 2024-12-04 23:59 | disposition home or self-care (01) | LOC: RPT 13:05 | PROVIDERS: ATTENDING PHYSICIAN Internal Medicine; FAMILY PHYSICIAN Internal Medicine | DX: K52.9 Noninfective gastroenteritis and colitis, unspecified (principal); Z73.6 Limitation of activities due to disability; R19.7 Diarrhea, unspecified | CPT/HCPCS: 97110; 97112 ==

== ENCOUNTER → 2024-12-14 13:28 | Outpatient (REF) | payer MEDICARE, SELFPAY | LOC: WDC 13:28 | PROVIDERS: ATTENDING PHYSICIAN Internal Medicine | DX: Z12.31 Encounter for screening mammogram for malignant neoplasm of breast (principal) | CPT/HCPCS: 77063; 77067 ==

== ENCOUNTER 2024-12-18 12:56 | Outpatient (RCR) | payer MEDICARE, SELFPAY | END 2024-12-18 23:59 | disposition home or self-care (01) | LOC: RPT 12:56 | PROVIDERS: ATTENDING PHYSICIAN Internal Medicine; FAMILY PHYSICIAN Internal Medicine | DX: K52.9 Noninfective gastroenteritis and colitis, unspecified (principal); Z73.6 Limitation of activities due to disability | CPT/HCPCS: 97110; 97112; 97530 ==

== ENCOUNTER → 2025-02-01 07:48 | Outpatient (REF) | payer MEDICARE, SELFPAY ==
[2025-02-01 09:02] LABS: Hematocrit 40.8 % (37.0-47.0); Hemoglobin 13.4 g/dL (12.0-16.0); Mean Corp Hgb Conc. 32.8 g/dL (33.0-37.0); Mean Corpuscular Hgb 31.3 pg (27.0-31.0); Mean Corpuscular Volume 95.3 fL (81.0-99.0); Mean Platelet Volume 11.8 fL (7.4-10.4); Platelet Count 209 10^3/uL (130-400); Red Blood Cell Count 4.28 10^6/uL (4.20-5.40); Red Cell Dist. Width 13.3 % (11.5-14.5); White Blood Cell Count 4.4 10^3/uL (4.8-10.8)
[2025-02-01 09:40] LABS: Blood Urea Nitrogen 13 mg/dl (7-17); Carbon Dioxide 29 mmol/L (22-30); Chloride 107 mmol/L (98-107); Glucose 103 mg/dl (70-99); Potassium 4.3 mmol/L (3.5-5.1); Sodium 142 mmol/L (135-145); eGFR > 60.00
== END ==
LOC: SDSPAT 07:48
PROVIDERS: ATTENDING PHYSICIAN Obstetrics & Gynecology; FAMILY PHYSICIAN Internal Medicine
DX: Z01.818 Encounter for other preprocedural examination (principal)
CPT/HCPCS: 36415; 80048; 85027; 86850; 86900; 86901

== ENCOUNTER 2025-02-05 06:00 | Day surgery (SDC) | payer MEDICARE, SELFPAY ==
[2025-02-01 08:01] VITALS: BMI 17.6
[2025-02-05] VITALS (12 sets, daily range): BP systolic 112–140; BP diastolic 63–85; BMI 17.6
[2025-02-05] MEDS: NORMOSOL-R/PLASMALYTE-A 1000 IV (06:39)
[2025-02-05] MEDS: HEPARIN 5000 UNITS SC (06:39)
[2025-02-05] MEDS: Pyridium 200 MG PO (06:39)
== END 2025-02-05 14:00 | disposition home or self-care (01) ==
LOC: SDS 06:00
PROVIDERS: ATTENDING PHYSICIAN Obstetrics & Gynecology
DX: N81.3 Complete uterovaginal prolapse (principal); N95.8 Other specified menopausal and perimenopausal disorders; N39.3 Stress incontinence (female) (male); N36.41 Hypermobility of urethra; N83.8 Other noninflammatory disorders of ovary, fallopian tube and broad ligament
CPT/HCPCS: 57425; 58542; 57250; 57288; 88305; 86900; 86901; C1763; C1771

== ENCOUNTER → 2025-05-02 11:38 | Outpatient (REF) | payer MEDICARE, SELFPAY | LOC: PAVMRI 11:38 | PROVIDERS: ATTENDING PHYSICIAN Psychiatry & Neurology Neurology; FAMILY PHYSICIAN Internal Medicine | DX: I67.4 Hypertensive encephalopathy (principal); R90.89 Other abnormal findings on diagnostic imaging of central nervous system | CPT/HCPCS: 70553; 72156; A9575 ==

== ENCOUNTER → 2025-05-03 11:44 | Outpatient (REF) | payer MEDICARE, SELFPAY | LOC: PAVMRI 11:44 | PROVIDERS: ATTENDING PHYSICIAN Psychiatry & Neurology Neurology; FAMILY PHYSICIAN Internal Medicine | DX: R90.89 Other abnormal findings on diagnostic imaging of central nervous system (principal) | CPT/HCPCS: 72157; A9575 ==